=== PATIENT | male | born 1970 | race Caucasian/White ===

== ENCOUNTER 2019-11-30 20:58 | Emergency (ER) | payer MEDICAID ==
[2019-11-30] MEDS ORDERED: TETANUS/DIPHTHERIA/PERTUSSIS 0.5 ML SYRINGE IM ONE (21:19)
--- NOTE | 2019-11-30 21:19 | ED Physician Documentation ---
<Junaid Ulloa - Last Filed: 12/01/19 07:03> History of Present Illness - Stated complaint Stated Complaint: MHE/ WRIST LACS - Chief complaint Chief Complaint: Laceration - History obtained from History obtained from: Patient (Patient is a 49-year-old male who was originally was brought in voluntarily however now he is involuntary. He reports that he tried cutting both of his wrists in an attempt to end his life stating that he no longer wants to deal with the pain. Patient reportsMultiple stressors in his family.) - Additonal information Additional information: Patient is a 49-year-old male who is here involuntarily after he tried cutting both of his wrists in an attempt to end his life. Review of Systems Constitutional: reports: Reviewed and negative Eyes: reports: Reviewed and negative Ears: reports: Reviewed and negative Nose: reports: Reviewed and negative Throat: reports: Reviewed and negative Cardiac: reports: Reviewed and negative Respiratory: reports: Reviewed and negative GI: reports: Reviewed and negative : reports: Reviewed and negative Skin: reports: Reviewed and negative Musculoskeletal: reports: Reviewed and negative Neurologic: reports: Reviewed and negative Psychiatric: reports: Depressed, Suicidal Endocrine: reports: Reviewed and negative Immunocompromised: reports: Reviewed and negative PD PAST MEDICAL HISTORY - Allergies Allergies/Adverse Reactions: Allergies Allergy/AdvReac Type Severity Reaction Status Date / Time No Known Drug Allergies Allergy Verified 11/30/19 21:10 PD ED PE NORMAL - Vitals Vital signs reviewed: Yes - General General: Alert and oriented X 3, No acute distress, Well developed/nourished - HEENT HEENT: PERRL - Neck Neck: Supple, no meningeal sign - Cardiac Cardiac: RRR, No murmur - Respiratory Respiratory: Clear bilaterally - Abdomen Abdomen: Normal bowel sounds, Soft, Non tender, Non distended - Derm Derm: Warm and dry - Extremities Extremities: Other (Bilateral 5 cm wrist lacerations on the volar aspect of bilateral wrist. There wounds are approximately 5 cm x 3 mm.) - Neuro Neuro: Alert and oriented X 3 - Psych Psych: Other (Depressed, suicidal) - Free text exam Free text exam: Bilateral wrist with 5 cm x 3 mm wrist lacerations neurovascular intact the bleeding is controlled radian, median, ulnar motor and sensory exam is intact sensations intact light touch.Compartments are soft neurovascularly intact.Radial pulses are 2+ and symmetric. Results - EKG (time done) 21:18 Rate: Other (no stemi) Procedures - General procedure General procedure: The left wrist was anesthetized with 1% lidocaine with epi, 2 cc was used. Wound was thoroughly irrigated with 500 cc of sterile saline no foreign bodies were identified the wound was closed with 6 sutures of 4-0 nylon plain erupted sutures. The right wrist wound is 5 cm it was anesthetized with 2 cc of 1% lidocaine with epinephrine. Irrigated thoroughly with 500 cc of sterile saline. No foreign bodies identified wound was closed with 4-0 nylon using a running suture a total of 6 sutures were placed. Bacitracin was applied to both wounds and simple dressing was applied. Post procedure shows both upper extremities to be neurovascular intact.Tetanus was updated as well. PD MEDICAL DECISION MAKING - ED course Complexity details: reviewed results, re-evaluated patient, considered differential (Depression, substance abuse, suicide attempt. Patient has been medically cleared he is pending evaluation by the designated mental health provider.), d/w patient, other (patient signed out at shift change to dr. lawson.) Departure - Departure Disposition: 01 Home, Self Care Clinical Impression: Suicide attempt Laceration of wrist Qualifiers: Encounter type: initial encounter Laterality: unspecified laterality Qualified Code(s): S61.519A - Laceration without foreign body of unspecified wrist, initial encounter Condition: Stable Instructions: ED Laceration Hand, ED Depression Follow-Up: Your, doctor [Other] Comments: Sutures will need to be removed in 7 to 10 days. Follow-up with your prescriber and your counselor as arranged with the DCR. <Emmett Lawson - Last Filed: 12/01/19 08:55> History of Present Illness - History obtained from History obtained from: Patient Results - Vitals Vitals: Vital Signs - 24 hr 11/30/19 11/30/19 11/30/19 21:04 21:17 21:43 Temperature 37 C 37 C Heart Rate 79 79 76 Respiratory 18 18 21 Rate Blood Pressure 159/98 H 159/98 H 138/93 H O2 Saturation 98 98 98 11/30/19 11/30/19 11/30/19 21:47 23:08 23:51 Temperature Heart Rate 92 82 81 Respiratory 18 23 22 Rate Blood Pressure 130/90 H 137/87 H 152/104 H O2 Saturation 98 98 98 12/01/19 12/01/19 12/01/19 00:07 02:04 03:07 Temperature Heart Rate 80 72 76 Respiratory 18 16 16 Rate Blood Pressure 147/101 H 138/92 H 133/86 H O2 Saturation 97 98 95 12/01/19 12/01/19 04:26 06:40 Temperature Heart Rate 74 89 Respiratory 16 18 Rate Blood Pressure 123/84 H 139/95 H O2 Saturation 99 98 Oxygen O2 Source Room air - Labs Labs: Laboratory Tests 11/30/19 11/30/19 11/30/19 21:19 21:19 21:19 WBC 9.8 RBC 4.52 L Hgb 14.4 Hct 42.9 MCV 94.9 H MCH 31.9 H MCHC 33.6 RDW 13.6 Plt Count 236 MPV 9.7 Neut # (Auto) 5.7 Lymph # (Auto) 3.2 [place] # (Auto) 0.6 Eos # (Auto) 0.2 Baso # (Auto) 0.1 Absolute Nucleated RBC 0.00 Nucleated RBC % 0.0 Sodium 140 Potassium 4.2 Chloride 106 Carbon Dioxide 30 Anion Gap 4.0 L BUN 9 Creatinine 0.9 Estimated GFR (MDRD) 90 Glucose 98 Calcium 9.4 Total Bilirubin 0.5 AST 27 ALT 53 Alkaline Phosphatase 105 Total Protein 6.8 Albumin 4.2 Globulin 2.6 Albumin/Globulin Ratio 1.6 Lipase 39 TSH 1.14 Urine Color Urine Clarity Urine pH Ur Specific [place] Urine Protein Urine Glucose (UA) Urine Ketones Urine Occult Blood Urine Nitrite Urine Bilirubin Urine Urobilinogen Ur Leukocyte Esterase Ur Microscopic Review Urine Culture Comments Salicylates < 6.0 Urine Opiates Screen Ur Oxycodone Screen Urine Methadone Screen Ur Propoxyphene Screen Acetaminophen < 10 L Ur Barbiturates Screen Ur Tricyclics Screen Ur Phencyclidine Scrn Ur Amphetamine Screen U Methamphetamines Scrn U Benzodiazepines Scrn Urine Cocaine Screen U Cannabinoids Screen Ethyl Alcohol < 5.0 11/30/19 21:45 WBC RBC Hgb Hct MCV MCH MCHC RDW Plt Count MPV Neut # (Auto) Lymph # (Auto) [place] # (Auto) Eos # (Auto) Baso # (Auto) Absolute Nucleated RBC Nucleated RBC % Sodium Potassium Chloride Carbon Dioxide Anion Gap BUN Creatinine Estimated GFR (MDRD) Glucose Calcium Total Bilirubin AST ALT Alkaline Phosphatase Total Protein Albumin Globulin Albumin/Globulin Ratio Lipase TSH Urine Color YELLOW Urine Clarity CLEAR Urine pH 8.0 H Ur Specific [place] 1.015 Urine Protein NEGATIVE Urine Glucose (UA) NEGATIVE Urine Ketones NEGATIVE Urine Occult Blood NEGATIVE Urine Nitrite NEGATIVE Urine Bilirubin NEGATIVE Urine Urobilinogen 0.2 (NORMAL) Ur Leukocyte Esterase NEGATIVE Ur Microscopic Review NOT INDICATED Urine Culture Comments NOT INDICATED Salicylates Urine Opiates Screen NEGATIVE Ur Oxycodone Screen NEGATIVE Urine Methadone Screen NEGATIVE Ur Propoxyphene Screen NEGATIVE Acetaminophen Ur Barbiturates Screen NEGATIVE Ur Tricyclics Screen NEGATIVE Ur Phencyclidine Scrn NEGATIVE Ur Amphetamine Screen POSITIVE H U Methamphetamines Scrn NEGATIVE U Benzodiazepines Scrn POSITIVE H Urine Cocaine Screen NEGATIVE U Cannabinoids Screen NEGATIVE Ethyl Alcohol PD MEDICAL DECISION MAKING - ED course Complexity details: reviewed old records, reviewed results, considered differential, d/w patient ED course: 49-year-old male with acute suicidal ideation last night related to seeing his ex with another male is no longer suicidal and he has been evaluated by the DCR who has access to his psychiatric history and she indicates that the patient is no longer suicidal and she has made a safety plan and a follow-up plan with the patient. I have discussed this with the patient and he will go home to his mother who he asked for help from last night when she called the ambulance. The patient feels comfortable with the plan and will follow up with his prescriber
[2019-11-30 21:24] LABS: BASOPHILS # (AUTO) 0.1 10^3/uL (0.0-0.1); BASOPHILS % (AUTO) 0.7 %; EOSINOPHILS # (AUTO) 0.2 10^3/uL (0.0-0.7); EOSINOPHILS % (AUTO) 1.7 %; HGB - HEMOGLOBIN 14.4 g/dL (14.0-18.0); LYMPHOCYTES # (AUTO) 3.2 10^3/uL (1.5-3.5); LYMPHOCYTES % (AUTO) 32.4 %; MEAN CORPUSCULAR HEMOGLOBIN 31.9 pg (27.0-31.0); MEAN CORPUSCULAR HGB CONC 33.6 g/dL (32.0-36.0); MEAN CORPUSCULAR VOLUME 94.9 fL (80.0-94.0); MEAN PLATELET VOLUME 9.7 fL (7.4-11.4); MONOCYTES # (AUTO) 0.6 10^3/uL (0.0-1.0); MONOCYTES % (AUTO) 6.5 %; NEUTROPHILS # (AUTO) 5.7 10^3/uL (1.5-6.6); NEUTROPHILS % (AUTO) 58.3 %; PLT - PLATELET COUNT 236 10^3/uL (130-450); RED BLOOD COUNT 4.52 10^6/uL (4.70-6.10); RED CELL DISTRIBUTION WIDTH 13.6 % (12.0-15.0); WHITE BLOOD COUNT 9.8 x10^3/uL (4.8-10.8)
[2019-11-30 21:39] LABS: ACETAMINOPHEN < 10 ug/mL (10-30); ALBUMIN 4.2 g/dL (3.2-5.5); ALBUMIN/GLOBULIN RATIO 1.6 (1.0-2.2); ALKALINE PHOSPHATASE 105 IU/L (42-121); ALT ALANINE AMINOTRANSFERASE 53 IU/L (10-60); AST ASPARTATE AMINOTRANSFERASE 27 IU/L (10-42); BILIRUBIN,TOTAL 0.5 mg/dL (0.2-1.0); BUN - BLOOD UREA NITROGEN 9 mg/dL (6-20); CALCIUM 9.4 mg/dL (8.5-10.3); CARBON DIOXIDE - CO2 30 mmol/L (21-32); CHLORIDE 106 mmol/L (101-111); CREATININE 0.9 mg/dL (0.6-1.2); GLUCOSE 98 mg/dL (70-100); LIPASE 39 U/L (22-51); SALICYLATE < 6.0 mg/dL; SODIUM 140 mmol/L (135-145); TOTAL PROTEIN 6.8 g/dL (6.7-8.2)
[2019-11-30 21:51] LABS: MUDS CUTOFF CONCENTRATIONS CUTOFF CONC BELOW:
[2019-11-30] MEDS ORDERED: LIDOCAINE 1%-EPI 1:100000 20 ML MDV SUBQ STA (21:51)
[2019-11-30 21:58] LABS: BILIRUBIN,URINE NEGATIVE (NEGATIVE); GLUCOSE, URINE (UA) NEGATIVE (NEGATIVE); KETONES,URINE (UA) NEGATIVE (NEGATIVE); LEUKOCYTE ESTERASE, URINE NEGATIVE (NEGATIVE); NITRITE,URINE NEGATIVE (NEGATIVE); OCCULT BLOOD,URINE NEGATIVE (NEGATIVE); PROTEIN,URINE NEGATIVE (NEGATIVE); UROBILINOGEN,URINE 0.2 (NORMAL) E.U./dL (NORMAL)
[2019-11-30 21:59] LABS: CLARITY,URINE CLEAR (CLEAR)
[2019-11-30 22:04] LABS: AMPHETAMINE SCREEN,URINE POSITIVE (NEGATIVE); BENZODIAZEPINES SCREEN, URINE POSITIVE (NEGATIVE); COCAINE SCREEN URINE NEGATIVE (NEGATIVE); METHADONE SCREEN, URINE NEGATIVE (NEGATIVE); METHAMPHETAMINES SCREEN, URINE NEGATIVE (NEGATIVE); OPIATE SCREEN, URINE NEGATIVE (NEGATIVE); OXYCODONE SCREEN, URINE NEGATIVE (NEGATIVE); PROPOXYPHENE SCREEN, URINE NEGATIVE (NEGATIVE); TRICYCLIC ANTIDEPRESSANT,URINE NEGATIVE (NEGATIVE)
[2019-12-01] MEDS ORDERED: BACITRACIN ZINC OINT 1 PACKET TOP STA (01:42)
[2019-12-01] MEDS ORDERED: LORazepam 0.5 MG TABLET PO STA (01:44)
[2019-12-01] MEDS ORDERED: IBUPROFEN 800 MG TABLET PO STA (06:41)
[2019-12-01] MEDS ORDERED: NICOTINE 14 MG PATCH TOP STA (08:11)
[2019-12-01 08:56] VITALS: BP 148/91
== END 2019-12-01 09:05 | disposition home or self-care (01) ==
LOC: ED 20:58
DX: S61.511A Laceration without foreign body of right wrist, initial encounter (principal); S61.512A Laceration without foreign body of left wrist, initial encounter; X78.1XXA Intentional self-harm by knife, initial encounter; Z23 Encounter for immunization; F32.9 Major depressive disorder, single episode, unspecified
CPT/HCPCS: 12004; 36415; 80053; 80306; 80307; 80320; 80329; 81003; 83690; 84443; 85025; 90471; 90715; 93005; 99283; 99284; A9270; 81001; 87086

== ENCOUNTER 2021-04-26 12:45 | Outpatient (CLI) | payer OTHER, MEDICAID | END 2021-04-26 12:46 | disposition short-term general hospital (02) | LOC: EMS 12:45 | DX: R41.82 Altered mental status, unspecified (principal) | CPT/HCPCS: A0425; A0427 ==